=== PATIENT | female | born 1965 | race Caucasian/White ===

== ENCOUNTER 2023-02-10 10:35 | Outpatient (CLI) | payer BC, SELFPAY ==
--- NOTE | ~2023-02-10 | XR_ITS ---
EXAM: XR hand BI arthritis min 3V DATE: 02/10/2023 11:01 HISTORY: M19.90 - Unspecified osteoarthritis, HAND SWELLING . COMPARISON: None available. FINDINGS: Normal mineralization. Old radial styloid fracture No acute fracture or dislocation. No ly tic or blastic lesion. Mild arthritic changes typical of osteoarthritis best seen in the DIP joints o f fingers, the interphalangeal and MCP joints of the thumbs, triscaphe joints, trapeziometacarpal michael nts (worse on the left), as well as the right radiocarpal joint. Bilateral ulnar positive variance. M inimal distal right ulnar sclerosis and degenerative subchondral cyst formation in the right lunate. No erosion or periosteal change. Soft tissues within normal limits. 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 Mild right ulnar impaction syndrome. Reviewed, dictated and finalized at location K.
--- NOTE | ~2023-02-10 | XR_ITS ---
Left foot Technique: AP and lateral standing views were obtained. Clinical History: Osteoarthritis Findings: No acute fracture or dislocation is seen. Osseous alignment is anatomic. Multi partite medi al hallux sesamoid present. There is the mineralized density in the soft tissues adjacent to the late ral hallux sesamoid, possibly an additional atypical sesamoid other nonspecific soft tissue ossificat ion/calcification. Joint spaces are preserved without erosive or degenerative change. Soft tissues ar e unremarkable. Impression: Nonspecific soft tissue calcification/ossification adjacent to the lateral hallux sesamoid, somewhat indeterminate. No significant abnormality seen otherwise. Reviewed, dictated and finalized at location M. Impression: Nonspecific soft tissue calcification/ossification adjacent to the lateral landis ux sesamoid, somewhat indeterminate. No significant abnormality seen otherwise.
--- NOTE | ~2023-02-10 | XR_ITS ---
Right foot Technique: AP and lateral standing views were obtained. Clinical History: Osteoarthritis Findings: No acute fracture or dislocation is seen. Osseous alignment is anatomic. There is probable degenerative change of the sesamoid metatarsal articulations at the first MTP joint. Soft tissues are unremarkable. Impression: Probable degenerative change of the sesamoid metatarsal articulations at the first MTP joint. Reviewed, dictated and finalized at location . Impression: Probable degenerative change of the sesamoid metatarsal articulations at the fi rst MTP joint.
[2023-02-10 11:55] LABS: Basophils Absolute Auto 0.1 K/mm3 (0.0-0.1); Eosinophils Absolute Auto 0.2 K/mm3 (0-0.3); Eosinophils Percent Auto 4.4 % (0-4.4); Hematocrit 46.3 % (37.0-47.0); Hemoglobin 14.6 g/dL (12.0-15.0); Immature Granulocyte Absolute 0.02 K/mm3 (0.00-0.031); Immature Granulocyte Percent A 0.4 % (0-0.5); Lymphocytes Absolute Auto 1.61 K/mm3 (0.9-3.2); Lymphocytes Percent Auto 32.3 % (18.3-44.2); Mean Corpuscular HGB Conc 31.5 g/dl (32-36); Mean Corpuscular Hemoglobin 27.3 pg (26-34); Mean Corpuscular Volume 86.7 fl (80-100); Mean Platelet Volume 10.9 fl (7.4-10.4); Monocytes Absolute Auto 0.5 K/mm3 (0.1-0.6); Monocytes Percent Auto 10.2 % (2.6-8.5); Neutrophils Absolute Auto 2.6 K/mm3 (1.3-6.7); Neutrophils Percent Auto 51.7 % (45.5-73.1); Platelet Count Result 278 k/mm3 (150-375); Red Blood Count 5.34 M/mm3 (4.2-5.4); Red Cell Distribution Width 14.2 % (11.5-14.5)
[2023-02-10 11:59] LABS: Appearance Urine Clear (Clear); Bilirubin Urine Negative (Negative); Blood Urine Negative (Negative); Color Urine Yellow (Yellow); Glucose Urine UA 3+ mg/dL (Negative); Ketones Urine Negative (Negative); Leukocyte Esterase Ur Negative LEU/UL (Negative); Nitrate Urine Negative (Negative); Protein Urine Negative (Negative); Specific Grav Ur 1.028 (1.001-1.035); Urobilinogen Urine 0.2 mg/dL (<2.0)
[2023-02-10 12:08] LABS: Alanine Aminotransferase 53 U/L (6-35); Albumin Level 4.6 g/dL (3.5-5.1); Alkaline Phosphatase 92 U/L (38-126); Anion Gap 6 mmol/L (8-16); Aspartate Amino Transferase 31 U/L (14-36); Bilirubin,Total 0.6 mg/dL (0.2-1.3); Blood Urea Nitrogen 20 mg/dL (7-17); CRP 0.9 mg/dL (<1.0); Calcium 9.6 mg/dL (8.4-10.2); Carbon Dioxide 32 mmol/L (22-30); Chloride 99 mmol/L (98-107); Creatine Kinase 92 U/L (30-135); Estimated Glomerular Filt Rate > 60; Glucose 305 mg/dL (65-110); Lactate Dehydrogenase 218 U/L (120-246); Potassium 4.3 mmol/L (3.4-5.0); Sodium 137 mmol/L (137-145)
[2023-02-10 12:20] LABS: Add Urine Microscopic? NO
[2023-02-10 12:52] LABS: Hepatitis B Surface Antigen Negative (Negative)
[2023-02-10 13:07] LABS: Erythrocyte Sedimentation Rate 13 mm/hr (0-20)
[2023-02-10 13:09] LABS: Hepatitis B Surface Anti Res Negative; Hepatitis C Virus Antibody Negative (Negative)
[2023-02-12 12:44] LABS: NIL 0.05 IU/mL; Quantiferon TB Plus, 1T NEGATIVE (NEGATIVE); TB1-NIL 0.02 IU/mL; TB2-NIL 0.01 IU/mL
[2023-02-13 21:53] LABS: Aldolase 5.3 U/L (<=8.1)
[2023-02-13 22:19] LABS: Anti Cyclic Citrullinated Pept <16 Units (<20)
[2023-02-14 11:04] LABS: Angiotensin Converting Enzyme 36.4 U/L (9-67)
[2023-02-16 11:50] LABS: Lyme Disease Ab (IgM), Blot Negative (Negative); Lyme Disease Ab(IgG), Blot Negative (Negative)
== END 2023-02-10 10:36 | disposition home or self-care (01) ==
PROVIDERS: PCP Internal Medicine; Visit Provider Internal Medicine
DX: M19.041 Primary osteoarthritis, right hand (principal); M19.042 Primary osteoarthritis, left hand; M19.031 Primary osteoarthritis, right wrist; M19.032 Primary osteoarthritis, left wrist; Z71.89 Other specified counseling; Z79.899 Other long term (current) drug therapy
CPT/HCPCS: 36415; 73130; 73620; 80053; 81003; 82085; 82164; 82550; 83615; 85025; 85652; 86038; 86140; 86200; 86480; 86617; 86706; 86803; 87340